=== PATIENT | female | born 1945 | race Caucasian/White ===

== ENCOUNTER 2016-12-06 17:00 | Emergency (ER) | payer OTHER ==
[2016-12-06 17:55] VITALS: BMI 24.1
[2016-12-06 18:00] VITALS: RESP 16; TEMP 98.3; O2SAT 97
--- NOTE | 2016-12-06 18:49 | C.PDOC ---
History Of Present Illness 70 year old female presents to the emergency department with complaints of epigastric discomfort unrelated to food and loose stool beginning today. Patient notes a history of gastritis and is not currently taking medication for gastritis. She states medication for gastritis offered relief in the past. Patient denies fever, nausea, or vomiting. Time Seen by Provider: 12/06/16 18:46 Chief Complaint (Nursing): Abdominal Pain History Per: Patient History/Exam Limitations: no limitations Onset/Duration Of Symptoms: Hrs Current Symptoms Are (Timing): Still Present Location Of Pain/Discomfort: Epigastric Radiation Of Pain To:: None Quality Of Discomfort: "Pain" Associated Symptoms: denies: Fever, Chills, Nausea, Vomiting Exacerbating Factors: denies: Food Last Bowel Movement: Today Recent travel outside of the [place]: No Abnormal Vaginal Bleeding: No Past Medical History Reviewed: Historical Data, Nursing Documentation, Vital Signs Vital Signs: Last Vital Signs Temp 98.3 F 12/06/16 17:55 Pulse 86 12/06/16 20:25 Resp 16 12/06/16 20:25 BP 124/68 12/06/16 20:25 Pulse Ox 97 12/06/16 20:25 - Medical History PMH: Arthritis, Hyperlipidemia, Osteoporosis Family History: States: Unknown Family Hx - Social History Hx Alcohol Use: No Hx Substance Use: No - Immunization History Hx Tetanus Toxoid Vaccination: No Hx Influenza Vaccination: No Hx Pneumococcal Vaccination: No Review Of Systems Constitutional: Negative for: Fever Cardiovascular: Negative for: Chest Pain Respiratory: Negative for: Shortness of Breath Gastrointestinal: Positive for: Abdominal Pain (epigastric pain ), Diarrhea. Negative for: Nausea, Vomiting Physical Exam - Physical Exam Appears: Non-toxic, No Acute Distress Skin: Warm, Dry Head: Atraumatic Eye(s): bilateral: Normal Inspection, PERRL, EOMI Oral Mucosa: Moist Neck: Supple Chest: Symmetrical, No Deformity Cardiovascular: Rhythm Regular Respiratory: Normal Breath Sounds, No Rhonchi, No Wheezing Gastrointestinal/Abdominal: Soft, Tenderness (mild epigastric tenderness ), No Distention, No Guarding, No Rebound Neurological/Psych: Oriented x3 ED Course And Treatment - Laboratory Results Result Diagrams: 12/06/16 19:20 12/06/16 19:20 Lab Interpretation: Normal (trop neg.) ECG: Interpreted By Fl ECG Rhythm: Sinus Rhythm ECG Interpretation: Normal Rate From EC O2 Sat by Pulse Oximetry: 97 (room air ) Pulse Ox Interpretation: Normal - Radiology CXR: Interpreted by Me CXR Interpretation: Yes: No Acute Disease - Other Rad abd x 2 X-Ray: Interpreted by Me (normal stool/gas pattern) Reevaluation Time: 20:15 Reassessment Condition: Improved Medical Decision Making Medical Decision Making: epigastric discomfort c/w gastritis/gerd/peptic ulcer disease low susp of cardiac etiology continue PPI and Maalox PRN and opt f/u with GI Disposition Doctor Will See Patient In The: Office Counseled Patient/Family Regarding: Studies Performed, Diagnosis - Disposition Referrals: [facility] [Outside] [facility] [Outside] Disposition: HOME/ ROUTINE Disposition Time: 20:16 Condition: GOOD Additional Instructions: sigue Protonix 40 mg diario para bajar el acides del estomago Maalox 30 cc (nomi cucharada) 5 veces al paul para neutrailizar el acides del estomago Sigue en nuest[facility] (jacinto) para consulta con un Gastroenterologo para considerar endoscopia. Todos deangelo examenes hoy son NORMALES Prescriptions: Pantoprazole Sodium [Protonix] 40 mg PO DAILY #30 ect Instructions: Peptic Ulcer (ED), Gastritis (ED), Gastroesophageal Reflux Disease (ED) Forms: [facility] (Bulgarian) Print Language: JAPANESE - Clinical Impression Clinical Impression: Epigastric abdominal pain - Scribe Statement The provider has reviewed the documentation as recorded by the Scribe Florina Mueller All medical record entries made by the Scribe were at my direction and personally dictated by me. I have reviewed the chart and agree that the record accurately reflects my personal performance of the history, physical exam, medical decision making, and the department course for this patient. I have also personally directed, reviewed, and agree with the discharge instructions and disposition.
[2016-12-06] MEDS ORDERED: Alum-Mag Hydrox-Simethicone Susp (30 mL) PO STA (19:10)
[2016-12-06] MEDS ORDERED: Alum-Mag Hydrox-Simethicone Susp (30 mL) ONE (19:26)
[2016-12-06 19:32] LABS: BASO % 0.3 % (0.0-2.0); EOS # 0.2 K/uL (0.0-0.7); EOS % 2.1 % (0.0-4.0); HEMATOCRIT 38.7 % (34.0-47.0); LYMPH # 3.1 K/uL (1.0-4.3); LYMPH % 32.3 % (20.0-40.0); MEAN CELL VOLUME 84.6 fL (81.0-99.0); MEAN CORPUSCULAR HEMOGLOBIN 27.4 pg (27.0-31.0); MEAN CORPUSCULAR HGB CONC 32.4 g/dL (33.0-37.0); MEAN PLATELET VOLUME 8.4 fL (7.2-11.7); MONO # 0.7 K/uL (0.0-0.8); MONO % 7.3 % (0.0-10.0); NRBC % 0.1 % (0.0-2.0); RED CELL DISTRIBUTION WIDTH 13.6 % (11.5-14.5); WHITE BLOOD COUNT 9.6 K/uL (4.8-10.8)
[2016-12-06 19:36] LABS: RBC URINE 9 /hpf (0-3); TRANSITIONAL EPITHIAL < 1 /hpf (0-3); URINE BACTERIA RARE (<OCC); URINE BILIRUBIN NEGATIVE (NEGATIVE); URINE BLOOD 2+ (NEGATIVE); URINE COLOR Yellow (YELLOW); URINE GLUCOSE (UA) NORMAL (Normal); URINE KETONE NEGATIVE (NEGATIVE); URINE LEUKOCYTE ESTERASE NEG Leu/uL (Negative); URINE PROTEIN NEGATIVE (NEGATIVE); URINE UROBILINOGEN NORMAL mg/dL (0.2-1.0); WBC URINE 3 /hpf (0-5)
[2016-12-06 19:40] LABS: CHLORIDE 96 mmol/L (98-107)
[2016-12-06 19:41] LABS: POTASSIUM 4.2 mmol/L (3.6-5.2); SODIUM 140 mmol/L (132-148)
[2016-12-06 19:43] LABS: AST/SGOT 26 U/L (14-36); BILIRUBIN,TOTAL 0.4 mg/dL (0.2-1.3); CARBON DIOXIDE 29 mmol/L (22-30); GFR AFRICAN-AMERICAN > 60
[2016-12-06 19:44] LABS: ALKALINE PHOSPHATASE 78 U/L (38-126); ALT/SGPT 27 U/L (9-52); BLOOD UREA NITROGEN 15 mg/dL (7-17); CALCIUM 8.7 mg/dl (8.6-10.4); GLUCOSE,RANDOM 96 mg/dL (65-105)
[2016-12-06 20:41] VITALS: BP 124/68; PULSE 86
--- NOTE | 2016-12-07 10:27 | RAD ---
PROCEDURE: Radiographs of the chest and abdomen (obstructive series) HISTORY: epigastric COMPARISON: No prior. TECHNIQUE: AP radiograph of the chest, with upright and supine radiographs of the abdomen. FINDINGS: CHEST: Lungs: Lung markings are accentuated. No lobar pneumonia. Cardiovascular: Normal size heart. No pulmonary vascular congestion. Pleura: No pleural fluid. No pneumothorax. Other findings: None. ABDOMEN AND PELVIS: Bowel: There is moderate amount of stool in the colon. No evidence of mechanical obstruction. Free air: None. Bones: Unremarkable. Other findings: None. IMPRESSION: Constipation. No evidence of mechanical bowel obstruction. No active pulmonary disease.
--- NOTE | 2016-12-09 14:35 | CARD ---
APPROVED REPORT EKG Measurement Heart [id number] <Conclusion> Normal sinus rhythm with sinus arrhythmia Moderate voltage criteria for LVH, may be normal variant Borderline ECG
== END 2016-12-06 20:39 | disposition home or self-care (01) ==
LOC: C.ER 17:00
DX: R10.13 Epigastric pain (principal)
CPT/HCPCS: 74022; 80053; 81001; 83880; 84484; 85025; 93005; 96374; 99284; C9113

== ENCOUNTER 2017-06-22 15:06 | Emergency (ER) | payer SELFPAY ==
[2017-06-22 15:07] VITALS: BMI 24.1
[2017-06-22 15:40] VITALS: O2SAT 97
[2017-06-22] MEDS ORDERED: Alum-Mag Hydrox-Simethicone Susp (30 mL) PO STA (17:58)
--- NOTE | 2017-06-22 18:14 | C.PDOC ---
History Of Present Illness <DonovanDevora aceov - Last Filed: 06/22/17 18:36> <Heath Cueva - Last Filed: 06/22/17 19:32> 71 yo female with PMH of gastritis c/o epigastric pain for 4 days. Notes pain is worse with food. Notes it feels the same as her gastritis symptoms. Does not take any medication for the symptoms. Normal BM today. Denies n/v, fever, gu symtpoms, sob, or chest pain. Also notes b/l knee pain for "long time". H/o arthritis. No trauma or change in sensation. (Dyan Mayer) History Per: Patient, Family History/Exam Limitations: no limitations Onset/Duration Of Symptoms: Days Current Symptoms Are (Timing): Still Present Context: Food Location Of Pain/Discomfort: Epigastric <DonovanDyan ace - Last Filed: 06/22/17 18:36> <Heath Cueva - Last Filed: 06/22/17 19:32> Time Seen by Provider: 06/22/17 17:36 Chief Complaint (Nursing): Abdominal Pain Past Medical History - Medical History PMH: Arthritis, Hyperlipidemia, Osteoporosis Family History: States: Unknown Family Hx - Social History Hx Alcohol Use: No Hx Substance Use: No - Immunization History Hx Tetanus Toxoid Vaccination: No Hx Influenza Vaccination: No Hx Pneumococcal Vaccination: No <DonovanmalkaDyan - Last Filed: 06/22/17 18:36> Vital Signs: Last Vital Signs Temp 98.6 F 06/22/17 15:35 Pulse 96 H 06/22/17 15:35 Resp 17 06/22/17 15:35 BP 136/80 06/22/17 15:35 Pulse Ox 97 06/22/17 18:39 Review Of Systems Except As Marked, All Systems Reviewed And Found Negative. Gastrointestinal: Positive for: Abdominal Pain <Dyan Mayer - Last Filed: 06/22/17 18:36> Physical Exam - Physical Exam Appears: Well, Non-toxic, No Acute Distress Skin: Normal Color, Warm, Dry Head: Atraumatic, Normacephalic Eye(s): bilateral: Normal Inspection, EOMI Nose: Normal Oral Mucosa: Moist Neck: Normal, Normal ROM, Supple Chest: Symmetrical Cardiovascular: Rhythm Regular Respiratory: Normal Breath Sounds Gastrointestinal/Abdominal: Soft, Tenderness (epigastric tenderness) Back: Normal Inspection Extremity: Normal ROM, No Tenderness, No Pedal Edema, No Calf Tenderness, No Swelling Pulses: Left Dorsalis Pedis: Normal, Right Dorsalis Pedis: Normal Neurological/Psych: Oriented x3, Normal Speech, Normal Motor, Normal Sensation <Dyan Mayer - Last Filed: 06/22/17 18:36> ED Course And Treatment O2 Sat by Pulse Oximetry: 97 Progress Note: Maalox and Pepcid ordered. Case endorsed to Dr Cueva pending labs , EKG and re-evaluation. <Dyan Mayer - Last Filed: 06/22/17 18:36> Disposition - Disposition Disposition Time: 19:00 <Dyan Mayer - Last Filed: 06/22/17 18:36> Counseled Patient/Family Regarding: Diagnosis - Disposition Disposition Time: 19:30 - POA Present On Arrival: None <Heath Cueva - Last Filed: 06/22/17 19:32> - Disposition Referrals: [facility] [Outside] Condition: IMPROVED Prescriptions: Famotidine [Pepcid] 20 mg PO BID #20 tab Instructions: Gastritis (DC), Diet for Ulcers and Gastritis (GEN) Forms: [facility] (Irish), Gen Discharge Inst Croatian Print Language: LUXEMBOURGISH - Clinical Impression Clinical Impression: Gastritis
[2017-06-22] MEDS ORDERED: Alum-Mag Hydrox-Simethicone Susp (30 mL) ONE (19:21)
[2017-06-22 22:18] VITALS: BP 138/83; PULSE 79; RESP 20; TEMP 98.2
--- NOTE | 2017-06-23 08:44 | RAD ---
Chest x-ray single frontal view History: Shortness of breath. Comparison: None available. Findings: Biapical pleural thickening. Diffuse increased interstitial lung markings. Mild patchy increased markings at the lung bases. Calcification at the aortic knob. Tortuous aorta. Degenerative changes in the spine and shoulders. Impression: Biapical pleural thickening. Diffuse increased interstitial lung markings. Mild patchy increased markings at the lung bases. Calcification at the aortic knob. Tortuous aorta.
== END 2017-06-22 19:44 | disposition home or self-care (01) ==
LOC: C.ER 15:06
DX: K29.70 Gastritis, unspecified, without bleeding (principal); E78.5 Hyperlipidemia, unspecified; M81.0 Age-related osteoporosis without current pathological fracture